=== PATIENT | female | born 1990 | race Two or more races ===

== ENCOUNTER 2024-10-13 08:01 | Emergency (ER) | payer MEDICAID, OTHER ==
[~2024-10-13] VITALS: Ht 157.5 cm; Wt 92.5 kg
--- NOTE | 2024-10-13 08:16 | ECG ---
[facility] Test Date: 2024-10-13 Test Time: 08:15:17 Pat Name: SARAH MOLINA Department: ER Room: Gender: F Snow Technician: ANA MARÍA : 1990 Requested By: JOSE POST Order Number: [id number] Reading MD: Keith Hernandez Measurements Intervals [place] Rate: 78 P: 30 HI: 129 QRS: 52 QRSD: 77 T: 19 QT: 388 QTc: 442 Interpretive Statements Sinus rhythm Electronically Signed On 10-13-2024 20:14:59 PDT by Keith Hernandez Please click the below link to view image of tracing.
--- NOTE | 2024-10-13 08:33 | ED.PDOC ---
History of Present Illness HPI Comments 34-year-old female with PMHx PE, Asthma, HTN presents with a chief complaint of SOB and chest pain x 2 days. Patient states that her pain is localized to her sternal chest region, nonradiating, describes as heaviness, and rates her pain a 6/10. 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 Patient reports that the pain is made worse with deep inspirations. Patient is ambulatory at this time. Chief Complaint: Shortness of Breath Time Seen by MD: 08:17 Reviewed Notes: Medications, Allergies Allergies: Coded Allergies: Trazodone (Verified Allergy, Unknown, 10/13/24) Information Source: Patient Mode of Arrival: Ambulatory Severity: Moderate Timing: Days Duration: Since onset Prehospital treatment: None Past Medical History PAST MEDICAL HISTORY: Asthma, HTN, PE Surgical History: Tubal Ligation [employer] History: Ectopic Family History Family History: Reviewed,noncontributory to illness Social History Smoker: Non-Smoker Alcohol: Denies ETOH Use Drugs: Denies Drug Use Lives In: Home Constitutional: denies: chills, diaphoresis, fatigue, fever, malaise, sweats, weakness, others EENTM: denies: blurred vision, double vision, ear bleeding, ear discharge, ear drainage, ear pain, ear ringing, eye pain, eye redness, hearing loss, mouth pain, mouth swelling, nasal discharge, nose bleeding, nose congestion, nose pain, photophobia, tearing, throat pain, throat swelling, voice changes, others Respiratory: reports: shortness of breath; denies: cough, hemoptysis, orthopnea, SOB at rest, SOB with excertion, stridor, wheezing, others Cardiovascular: reports: chest pain; denies: dizzy spells, diaphoresis, Dyspnea on exertion, edema, irregular heart beat, left arm pain, lightheadedness, palpitations, PND, syncope, others Gastrointestinal: denies: abdomen distended, abdominal pain, blood streaked bowels, constipated, diarrhea, dysphagia, difficulty swallowing, hematemesis, melena, nausea, poor appetite, poor fluid intake, rectal bleeding, rectal pain, vomiting, others Genitourinary: denies: abnormal vagina bleeding, burning, dyspareunia, dysuria, flank pain, frequency, hematuria, incontinence, pain, , vagina discharge, urgency, others Neurological: denies: dizziness, fainting, headache, left sided numbness, left sided weakness, numbness, paresthesia, pre-existing deficit, right sided numbness, right sided weakness, seizure, speech problems, tingling, tremors, weakness, others Musculoskeletal: denies: back pain, gout, joint pain, joint swelling, muscle pain, muscle stiffness, neck pain, others Integumetry: denies: bruises, change in color, change in hair/nails, dryness, laceration, lesions, lumps, rash, wounds, others Allergic/Immunocompromised: denies: Difficulty Healing, Frequent Infections, Hives, Itching, others Hematologic/Lymphatic: denies: anemia, blood clots, easy bleeding, easy bruising, swollen glands, others Endocrine: denies: excessive hunger, excessive sweating, excessive thirst, excessive urination, flushing, intolerance to cold, intolerance to heat, unexplained weight gain, unexplained weight loss, others Psychiatric: denies: anxiety, bipolar disorder, depression, hopeless, panic disorder, schizophrenia, sleepless, suicidal, others All Other Systems: Reviewed and Negative Physical Exam General Appearance: Moderate Distress, Normal HEENT: Normal ENT Inspection, Pharynx Normal, TMs Normal Neck: Full Range of Motion, Non-Tender, Normal, Normal Inspection Respiratory: Chest Non-Tender, Lungs Clear, No Accessory Muscle Use, No Resp iratory Distress, Normal Breath Sounds Cardiovascular: No Edema, No JVD, No Murmur, No Gallop, Normal Peripheral Pulses, Regular Rate/Rhythm Breast Exam: Deferred Gastrointestinal: No Organomegaly, Non Tender, No Pulsatile Mass, Normal Bowel Sounds, Soft Genitalia: Deferred Pelvic: Deferred Rectal: Deferred Extremities: No calf tenderness, Normal capillary refill, Normal inspection, Normal range of motion, Non-tender, No pedal edema Musculoskeletal : Apperance: Normal Neurologic: Alert, manager company II-XII nml as Tested, No Motor Deficits, Normal Affect, Normal Mood, No Sensory Deficits Cerebellar Function: Normal Reflexes: Normal Skin: Dry, Normal Color, Warm Peripheral Pulses: 3+ Radial (R), 3+ Radial (L) Lymphatic: No Adenopathy Was a procedure done? Was a procedure done?: No EKG EKG : Pulse Rate (adult): 79 [place]: Normal Cardiac Rhythm: NSR Block: None Hypertrophy: None ST: Normal Differential Dx Considerations may include: Pneumonitis Pleurisy X-Ray, Labs, Meds, VS Vital Signs Date Time Temp Pulse Resp B/P (MAP) Pulse Ox O2 Delivery O2 Flow Rate FiO2 10/13/24 08:33 79 10/13/24 08:15 78 10/13/24 08:08 98.7 86 20 145/104 (118) 100 98.7 10/13/24 08:08 98.7 86 20 145/104 (118) 100 98.7 10/13/24 08:08 Room Air* 0 21 Lab Test 10/13/24 09:39 10/13/24 08:37 10/13/24 08:36 Range/Units Troponin I High Sensitivity < 3 L < 3 L </=34 ng/L Urine Color Yellow Yellow Urine Clarity Hazy H Clear Urine pH 6.0 5.0-9.0 Urine Specific [place] 1.023 1.001-1.035 Urine Protein Trace H Negative Urine Ketones 2+ H Negative Urine Blood Negative Negative /uL Urine Nitrite 2+ H Negative Urine Bilirubin Negative Negative Urine Urobilinogen Normal Negative mg/dL Urine Leukocyte Esterase 3+ Negative /uL Urine RBC 1 0 - 4 /hpf Urine Microscopic WBC 47 H 0-5 /HPF Urine Squamous Epithelial Cells Few <5 /hpf Urine Bacteria Few H None Seen /hpf Urine Glucose Normal Normal mg/dL D-Dimer, Quantitative 0.43 0.0-0.49 mg/L FEU Patient alert. Complaining of chest pain. Vitals stable. Answering all questions. D-dimer within normal limits. UA shows UTI. Cardiac marker within normal limits. Possible pneumonitis. Was given prescription of prednisolone Macrobid antibiotic. Explained to the patient. Was told to follow up with her primary care physician. Was told to come back if there is any problem. Time of 1ST Reevaluation: 08:47 Reevaluation 1ST: Unchanged Time of 2ND Reevaluation: 10:33 Reevaluation 2ND: Improved Patient Education/Counseling: Diagnosis, Treatment, Need For Follow Up Family Education/Counseling: No Family Present SEPSIS Sepsis Screen Date sepsis recognized/suspect: Oct 13, 2024 Time Sepsis recognized/suspect: 0808 Recent Procedure: No On Antibiotic Therapy: No Respiratory Rate >20: No Heart Rate >90: No Temp<36 C (96.8 F) or >38.3 C: No SBP <90 or MAP <65 mmHG: No New Acute Mental Status Change: No Is the patient on CPAP, BIPAP,: No Physician Orders Electrocardigram (10/13/24 09:12) Electrocardigram (10/13/24 11:12) Vital Signs Date Time Temp Pulse Resp B/P (MAP) Pulse Ox O2 Delivery O2 Flow Rate FiO2 10/13/24 08:33 79 10/13/24 08:15 78 10/13/24 08:08 98.7 86 20 145/104 (118) 100 98.7 10/13/24 08:08 98.7 86 20 145/104 (118) 100 98.7 10/13/24 08:08 Room Air* 0 21 Departure 1 Departure Time of Disposition: 10:34 Impression: Primary Impression: Pneumonitis Additional Impression: Urinary tract infection Qualified Codes: N30.00 - Acute cystitis without hematuria Disposition: HOME / SELF CARE / HOMELESS Condition: Good e-Prescriptions Prednisone (Prednisone) 10 Mg Tab 10 MG PO DAILY for 3 Days, #3 MG Prov: JOSE POST MD 10/13/24 Nitrofurantoin Monohydrate Mac (Macrobid) 100 Mg Cap 100 MG PO BID for 5 Days, #10 CAP Prov: JOSE POST MD 10/13/24 Discharged With: Self Critical Care Note Critical Care Time?: No Stability Stability form required: No Heart Score Heart Score: Heart Score Response (Comments) Value History N/A 0 EKG N/A 0 Age N/A 0 Risk Factors N/A 0 Troponin N/A 0 Total 0 I personally scribed for JOSE POST MD ([email or web address]) on 10/13/24 at 08:33. Electronically submitted by Mike Rosas ([email or web address]). JOSE POST MD Oct 13, 2024 08:33
[2024-10-13 09:13] LABS: Urine Bacteria FEW /hpf (None Seen); Urine Blood Negative /uL (Negative); Urine Protein, UAD TRACE (Negative); Urine Specific Gravity 1.023 (1.001-1.035); Urine Squamous Epithelial Cell FEW /hpf (<5); Urine Urobilinogen Normal (Negative); Urine WBC 47 /HPF (0-5)
[2024-10-13 09:14] LABS: Urine Clarity Hazy (Clear); Urine Color Yellow (Yellow)
[2024-10-13] MEDS ORDERED: NITR-87 PO (10:36)
[2024-10-13] MEDS ORDERED: PRED10TA PO (10:36)
[2024-10-13 10:38] VITALS: BP 151/98; PULSE 73; RESP 18; TEMP 98.8; O2SAT 100
== END 2024-10-13 11:02 | disposition home or self-care (01) ==
LOC: ER 08:01
DX: J18.9 Pneumonia, unspecified organism (principal); N39.0 Urinary tract infection, site not specified; I10 Essential (primary) hypertension; J45.909 Unspecified asthma, uncomplicated; Z86.711 Personal history of pulmonary embolism; Z86.718 Personal history of other venous thrombosis and embolism; Z98.51 Tubal ligation status
CPT/HCPCS: 36415; 81001; 84484; 85379; 93005